=== PATIENT | female | born 1965 | race Caucasian/White ===

== ENCOUNTER 2018-01-31 15:50 | Outpatient (CLI) | payer OTHER | END 2018-01-31 15:51 | disposition home or self-care (01) | LOC: BICMAMMO 15:50 | PROVIDERS: ATTEND Advanced Practice Midwife | DX: Z12.31 Encounter for screening mammogram for malignant neoplasm of breast (principal) | CPT/HCPCS: 77063; 77067 ==

== ENCOUNTER 2020-07-01 14:40 | Outpatient (CLI) | payer BC ==
--- NOTE | 2020-07-01 16:14 | ULT ---
THYROID ULTRASOUND: Date: 07/01/2020 INDICATION: History of thyroid nodules. COMPARISON: Prior exam dated 03/08/2017. FINDINGS: The large solid isoechoic nodule involving the mid to lower pole of the right thyroid gland now measu res 2.9 x 1.8 x 2.2 cm, where previously this nodule measured 2.7 x 1.8 x 1.8 cm. When accounting for slight differences in technique, this is likely stable. There is an additional solid isoechoic nodul e within the lower pole of the right thyroid gland measuring 1.9 x 0.8 x 1.1 cm, where it previously measured 1.0 x 0.8 x 0.9 cm. The measurement margins are slightly different than prior exams; howeve r, the nodule is slightly larger. There is a small isoechoic nodule involving the lower pole of the left thyroid gland measuring 0.6 x 0.4 x 0.6 cm, where it previously measured 0.75 x 0.31 cm. There is a small, subcentimeter cyst in th e superior pole of the left thyroid lobe. Right thyroid lobe measures 5.4 x 2.3 x 2.2 cm. Left thyroid lobe measures 5.4 x 1.5 x 1.4 cm. Thyroid isthmus measures 0.3 cm. IMPRESSION: Right TIRADS 3 nodules. Smaller lower pole nodule in the right thyroid lobe is enlarging. Continued surveillance recommended. POS: [facility]
== END 2020-07-01 14:41 | disposition home or self-care (01) ==
LOC: BICULT 14:40
PROVIDERS: ATTEND Family Medicine
DX: E07.9 Disorder of thyroid, unspecified (principal); E04.2 Nontoxic multinodular goiter
CPT/HCPCS: 76536

== ENCOUNTER 2021-11-12 15:26 | Outpatient (CLI) | payer BC | END 2021-11-12 15:27 | disposition home or self-care (01) | LOC: BICULT 15:26 | PROVIDERS: ATTEND Family Medicine | DX: E07.89 Other specified disorders of thyroid (principal); E04.2 Nontoxic multinodular goiter | CPT/HCPCS: 76536 ==

== ENCOUNTER 2024-02-17 14:27 | Outpatient (CLI) | payer BC | END 2024-02-17 14:28 | disposition home or self-care (01) | LOC: BICULT 14:27 | PROVIDERS: ATTEND Family Medicine | DX: E07.89 Other specified disorders of thyroid (principal) | CPT/HCPCS: 76536 ==